=== PATIENT | male | born 1955 | race Caucasian/White ===

== ENCOUNTER 2023-05-16 15:36 | Outpatient (CLI) | payer OTHER ==
--- NOTE | 2023-05-16 18:56 | XRAY Report ---
PROCEDURE: Chest 2V INDICATIONS: DYSPNEA TECHNIQUE: 2 views of the chest were acquired. COMPARISON: None. FINDINGS: Surgical changes and devices: None. Lungs and pleura: No pleural effusions or pneumothorax. Lungs are clear. Mediastinum: Mediastinal contours appear normal. Heart size is normal. Bones and chest wall: No suspicious bony lesions. Overlying soft tissues appear unremarkable. IMPRESSION: No acute cardiopulmonary process. Reviewed by: Abelardo Mccoy MD on 05/16/2023 6:55 PM PDT Approved by: Abelardo Mccoy MD on 05/16/2023 6:55 PM PDT Station ID: [id number]
== END 2023-05-16 15:37 | disposition home or self-care (01) ==
LOC: DI 15:36
PROVIDERS: ATTEND Registered Nurse
DX: R06.00 Dyspnea, unspecified (principal)